=== PATIENT | female | born 1995 | race African-American/Black ===

== ENCOUNTER 2024-03-15 11:41 | Emergency (ER) | payer OTHER, SELFPAY ==
[2024-03-15 11:50] VITALS: BP 141/83; PULSE 109; RESP 16; TEMP 35.9; O2SAT 95; BMI 39.7
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
[2024-03-15] MEDS: ONDANSETRON 2 MG/ML inj 4 MG IM (12:52)
== END 2024-03-15 16:13 | disposition home or self-care (01) ==
PROVIDERS: Emergency Provider Family Medicine
DX: R10.9 Unspecified abdominal pain (principal); Y04.2XXA Assault by strike against or bumped into by another person, initial encounter
CPT/HCPCS: 96372; 99284; J2405

== ENCOUNTER 2024-03-15 21:08 | Outpatient (CLI) | payer OTHER, SELFPAY | END 2024-03-15 21:09 | disposition home or self-care (01) | LOC: AMB 03-27 18:26 | PROVIDERS: Visit Provider Family Medicine | DX: R07.89 Other chest pain (principal) | CPT/HCPCS: A0425; A0427 ==